=== PATIENT | female | born 1995 | race African-American/Black ===

== ENCOUNTER 2016-05-15 21:31 | Inpatient (IN) ==
--- NOTE | 2016-05-15 22:00 | ED EKG INTERP ---
EKG Interpretation - EKG Time of EKG reading by physician:: 22:00 EKG Read and Signed by:: Black Ramsay EKG Interpretation (*Must complete 3 of following elements*): Normal Rate: 114 Rhythm: Sinus tachycardia Attestation - Scribe Verification/Attestation Scribe:: Santos Bianchi Acting as Scribe for:: Black Ramsay Scribe documention review:: This chart was documented by a scribe and accurately reflects the service the provider performed and the decisions made by the provider.
--- NOTE | 2016-05-15 22:06 | PROVIDER DOCUMENTATION ---
HPI-General Adult - General Stated Complaint: overdose Time Seen by Provider: 05/15/16 21:52 Source: EMS Allergies/Adverse Reactions: Patient Allergies Allergy/AdvReac Type Severity Reaction Status Date / Time Unable to Assess Allergy Verified 05/15/16 22:46 Home Medications: Home Medication List Medication Instructions Recorded Confirmed Last Taken Type Home Meds Unobtainable 05/15/16 05/15/16 Unknown History - History of Present Illness -Gen Adult Nature of Presenting Problems: This pt presents to ED with possible overdose. EMS reports that the pt was at a [employer] when she admitted to smoking a blunt. Upon arrival to the scene patient was passed out and when she woke up she was combative. She was placed in four point soft restraints in which she broke through and she was then medicated with Haldol and Benadryl. Pt is currently arousable to sternal rub and she is alert to person and place. Location of Pain/Injury: reports: none. denies: head, face, mouth, neck, chest , upper extremity, hand(s), abdomen, back, pelvis, genitalia, lower extremity, feet, upper body, lower body, generalized, other Pain Radiation: reports: no radiation. denies: arm(s), back, buttocks, chest, epigastric, feet, groin, jaw, flank (L), legs (lower), LLQ, LUQ, neck, periumbilical, flank (R), RLQ, RUQ, shoulder(s), scapula, scrotal, sternal notch , suprapubic, legs (upper), urethral, vaginal, other Quality of Pain: reports: none. denies: aching, burning, cramping, dull, fullness, sharp, stabbing Timing: reports: other (no pain noted) Context/Activities at Onset: reports: none Modifying Factors: improves with: nothing. worse with: analgesics, antacids, breathing, cold/heat therapy, coughing, defecating, eating, exercise, immobilization, lying down, massage, movement, other medication, palpation, rest , urinating, vomiting, other Associated Symptoms: reports: denies symptoms. denies: anxiety, arm pain, back/ neck pain, chest pain, constipation, cough, diaphoresis, diarrhea, dizziness, EENT symptoms, fatigue, fever/chills, genitourinary problems, headaches, heartburn, joint pain, loss of appetite, malaise, muscle aches, sinus congestion /drainage, nausea, rash, seizure, shortness of breath, sensory/motor loss, pain with inspiration, swelling/mass in abdomen, syncope, vomiting, weakness, trouble walking, other - Diabetes Related Context Context: denies: low blood sugar, high blood sugar, change in mental status, unresponsive, prior DKA hospitalization - Sickle Cell Pain Related Context Sickle Cell Pain Location: reports: none. denies: head, face, mouth, neck, chest, upper extremity, hand(s), abdomen, back, pelvis, genitalia, lower extremity, feet, upper body, lower body, generalized, other Review of Systems - Adult - REVIEW OF SYSTEMS - ADULT Constitutional: reports: see HPI. denies: night sweats, weight gain, weight loss Eyes: reports: see HPI. denies: discharge, dry eyes, eye pain Ears, Nose, Mouth & Throat: reports: see HPI. denies: ear discharge, ear pain, hearing loss, nose pain, loose teeth, mouth/dental pain, mouth swelling Cardiovascular: reports: see HPI. denies: chest pain, heart murmur, irregular heart rate, orthopnea Respiratory: reports: see HPI. denies: chronic cough, cough, dyspnea on exertion, excessive sputum production, shortness of breath Gastrointestinal: reports: see HPI. denies: abdominal pain, hematemesis, constipation, difficulty swallowing Genitourinary: reports: see HPI Musculoskeletal: reports: see HPI. denies: bone pain, back pain, joint pain, joint swelling, muscle aches, muscle weakness Integumentary: reports: see HPI. denies: mole changes, nail changes, rash, skin sores/ulcer, skin thickening Neurological: reports: see HPI. denies: ataxia, dizziness/vertigo, headache/ migraines, loss of balance, numbness, paresthesia, seizure, slurred speech, syncope, tremors Psychiatric: reports: see HPI Endocrine: reports: see HPI. denies: change in skin pigment, excessive sweating , cold intolerance, heat intolerance Hematologic/Lymphatic: reports: see HPI. denies: low blood count, lymphedema, prolonged bleeding Past History - Adult - PAST MEDICAL HISTORY-ADULT Review of Records: reports: Old Records Reviewed, Nursing Assessment Review, Medications Reviewed, Social history reviewed & non-contributory. Physical Exam-General - PHYSICAL EXAM-ADULT Initial Vital Signs Reviewed: Yes - CONSTITUTIONAL General Appearance: no apparent distress, lethargic. negative: obese, thin, anxious - EYES Eyes: PERRL/EOMI. negative: EOM palsy, meningismus, photophobia, sclera injected - HEAD, EARS, NOSE, MOUTH & THROAT HENMT: normocephalic/atraumatic, moist mucous membranes. negative: pharynx normal, angioedema, dental decay, hearing deficit - NECK Neck: non-tender, full range of motion, supple. negative: carotid bruit, C- spine tenderness, limited range of motion - RESPIRATORY Respiratory: no pleuratic chest pain, no accessory muscle use, crackles, wheezing. negative: pain on inspiration, plerual rub, retractions - CARDIOVASCULAR Cardiovascular: normal peripheral pulses, regular rate, rhythm, no edema, no gallop, no JVD, no murmur. negative: diastolic murmur, systolic murmur, gallop/ S4, extra beats, friction rub - CHEST (BREASTS) Chest/Breast: deferred - GASTROINTESTINAL (ABDOMEN) Abdominal Exam: normal bowel sounds, non tender, no organomegaly, no pulsatile mass. negative: hepatomegaly, spleenomegaly, McBurney's point tenderness - GENITOURINARY Female Genitalia/Pelvic Exam: deferred Rectal Exam: deferred - LYMPHATIC Lymphatic: no adenopathy. negative: axilla node tender, cervical node tenderness, inguinal node tender, enlargement - MUSCULOSKELETAL Back Exam: normal inspection, no CVA tenderness, no vertebral tenderness. negative: muscle spasm, scoliosis, swelling Extremity: normal range of motion, non-tender, no pedal edema, no calf tenderness, normal capillary refill. negative: calf tenderness, deformity, erythema, pedal edema, slow capillary refill Peripheral Pulses: radial (R): 2+, radial (L): 2+, dorsalis-pedis (R): 2+, dorsalis-pedis (L): 2+ - SKIN Integumentary: normal color, warm/dry. negative: blanching, cyanosis, diaphoresis, signs of IVDA, jaundice, swelling, tenderness - NEUROLOGIC Neurologic: negative: facial droop, focal weakness, motor weakness, sensory deficit - PSYCHIATRIC Psych/Mental Status: other (sedated at this time; arousable to sternal rub; alert to place and person) Progress - PLAN OF CARE/RESULTS Progress/Plan/Lab Results: Dr. Ramsay at bedside for evaluation. Discussed results and plan of care with patient. patient agrees with plan and verbalizes understanding. Vital Signs Temp Pulse Resp BP Pulse Ox 05/15/16 22:13 98.7 F 117 H 22 93/50 97 Unable to Assess Allergy (Verified 05/15/16 22:46) patient is unresponsive Home Meds Unobtainable 05/15/16 Laboratory 05/16/16 05/15/16 05/15/16 00:15 22:40 22:30 WBC RBC Hgb Hct MCV MCH MCHC RDW Std Deviation Plt Count MPV Immature Gran % (Auto) Neut % (Auto) Lymph % (Auto) Stanton % (Auto) Eos % (Auto) Baso % (Auto) Immature Gran # (Auto) Neut # (Auto) Lymph # (Auto) Stanton # (Auto) Eos # (Auto) Baso # (Auto) Specimen Type ARTERIAL Sample Site L RADIAL pH 7.28 L pCO2 51 H* pO2 99 HCO3 23.8 Base Excess -3.0 ABG O2 Saturation 97.0 Alexei Test YES Blood Gas Modality CANNULA FiO2 % 28.0 Sodium Potassium Chloride Carbon Dioxide Anion Gap BUN Creatinine Estimated GFR/1.73 m2 BUN/Creatinine Ratio Glucose POC Glucose 96 Calculated Osmolality Calcium Total Bilirubin AST ALT Alkaline Phosphatase Creatine Kinase Troponin T Total Protein Albumin Globulin Albumin/Globulin Ratio Urine Source Urine Color Urine Turbidity Urine pH Ur Specific Jelm Urine Protein Ur Glucose (Stick) Ur Ketones (Stick) Urine Blood Urine Nitrite Urine Bilirubin Urobilinogen Dipstick Urine Leukocytes Urine WBC (Auto) Urine RBC (Auto) U Epithel Cells (Auto) Urine Bacteria (Auto) Urine Crystals Small Round Cells Urine Casts Urine Yeast-like Cells Urine Opiates Screen NONE DETECTED Ur Oxycodone Screen NONE DETECTED Ur Methadone, Qual NONE DETECTED Ur Barbiturates Screen NONE DETECTED Ur Phencyclidine Scrn NONE DETECTED Ur Amphetamines Screen NONE DETECTED U Benzodiazepines Scrn NONE DETECTED Urine Cocaine Screen NONE DETECTED U Cannabinoids Screen PRESUMPTIVE POSITIVE A Plasma/Serum Ethyl Alc 05/15/16 05/15/16 05/15/16 22:30 21:50 21:50 WBC RBC Hgb Hct MCV MCH MCHC RDW Std Deviation Plt Count MPV Immature Gran % (Auto) Neut % (Auto) Lymph % (Auto) Stanton % (Auto) Eos % (Auto) Baso % (Auto) Immature Gran # (Auto) Neut # (Auto) Lymph # (Auto) Stanton # (Auto) Eos # (Auto) Baso # (Auto) Specimen Type Sample Site pH pCO2 pO2 HCO3 Base Excess ABG O2 Saturation Alexei Test Blood Gas Modality FiO2 % Sodium Potassium Chloride Carbon Dioxide Anion Gap BUN Creatinine Estimated GFR/1.73 m2 BUN/Creatinine Ratio Glucose POC Glucose Calculated Osmolality Calcium Total Bilirubin AST ALT Alkaline Phosphatase Creatine Kinase Troponin T < 0.010 Total Protein Albumin Globulin Albumin/Globulin Ratio Urine Source CATH Urine Color YELLOW Urine Turbidity HAZY Urine pH 5.5 Ur Specific Jelm 1.027 Urine Protein 200 A Ur Glucose (Stick) NEGATIVE Ur Ketones (Stick) TRACE A Urine Blood NEGATIVE Urine Nitrite NEGATIVE Urine Bilirubin NEGATIVE Urobilinogen Dipstick NORMAL Urine Leukocytes NEGATIVE Urine WBC (Auto) 10-20 A Urine RBC (Auto) <10 U Epithel Cells (Auto) >10 A Urine Bacteria (Auto) NEGATIVE Urine Crystals NONE SEEN Small Round Cells NONE SEEN Urine Casts GRANULAR PRESENT Urine Yeast-like Cells NONE SEEN Urine Opiates Screen Ur Oxycodone Screen Ur Methadone, Qual Ur Barbiturates Screen Ur Phencyclidine Scrn Ur Amphetamines Screen U Benzodiazepines Scrn Urine Cocaine Screen U Cannabinoids Screen Plasma/Serum Ethyl Alc 05/15/16 05/15/16 21:50 21:50 WBC 9.68 RBC 4.30 Hgb 11.0 L Hct 32.8 L MCV 76.3 L MCH 25.6 L MCHC 33.5 RDW Std Deviation 15.2 H Plt Count 389 MPV 8.8 Immature Gran % (Auto) 1.9 H Neut % (Auto) 72.5 Lymph % (Auto) 11.6 L Stanton % (Auto) 11.9 H Eos % (Auto) 1.5 Baso % (Auto) 0.6 Immature Gran # (Auto) 0.18 H Neut # (Auto) 7.02 H Lymph # (Auto) 1.12 L Stanton # (Auto) 1.15 H Eos # (Auto) 0.15 Baso # (Auto) 0.06 Specimen Type Sample Site pH pCO2 pO2 HCO3 Base Excess ABG O2 Saturation Alexei Test Blood Gas Modality FiO2 % Sodium 137 Potassium 4.1 Chloride 103 Carbon Dioxide 21 L Anion Gap 13 BUN 12 Creatinine 1.1 H Estimated GFR/1.73 m2 > 60 BUN/Creatinine Ratio 11 Glucose 100 POC Glucose Calculated Osmolality 274 Calcium 9.3 Total Bilirubin < 0.10 L AST 23 ALT 34 Alkaline Phosphatase 82 Creatine Kinase 100 Troponin T Total Protein 7.4 Albumin 3.4 L Globulin 4.0 Albumin/Globulin Ratio 0.9 Urine Source Urine Color Urine Turbidity Urine pH Ur Specific Jelm Urine Protein Ur Glucose (Stick) Ur Ketones (Stick) Urine Blood Urine Nitrite Urine Bilirubin Urobilinogen Dipstick Urine Leukocytes Urine WBC (Auto) Urine RBC (Auto) U Epithel Cells (Auto) Urine Bacteria (Auto) Urine Crystals Small Round Cells Urine Casts Urine Yeast-like Cells Urine Opiates Screen Ur Oxycodone Screen Ur Methadone, Qual Ur Barbiturates Screen Ur Phencyclidine Scrn Ur Amphetamines Screen U Benzodiazepines Scrn Urine Cocaine Screen U Cannabinoids Screen Plasma/Serum Ethyl Alc Orders Category Date Time Status ED: Urine Bedside ORDERED Care 05/15/16 22:01 Active FSBS [Finger Stick Blood Sugar (ED)] DIRECTED Care 05/15/16 22:09 Active Restraint/Seclude Init/Renew V NOW Care 05/15/16 22:35 Active Saline Loc NOW Care 05/15/16 22:00 Active CHEST-PORTABLE [RAD] Stat Exams 05/15/16 22:59 Taken ABG [RESP] Routine Lab 05/15/16 23:41 Completed ABG [RESP] Routine Lab 05/16/16 01:30 Ordered ALCOHOL BLOOD Stat Lab 05/15/16 21:50 Completed CBC WITH ELECTRONIC DIFF [HEME] Stat Lab 05/15/16 21:50 Completed CK PROFILE [SP CHEM] Stat Lab 05/15/16 21:50 Completed COMPREHENSIVE METABOLIC PANEL [CHEM] Stat Lab 05/15/16 21:50 Completed TROPONIN T Stat Lab 05/15/16 21:50 Completed URINALYSIS W/POSS RFLX CULT [URINALYSIS] Stat Lab 05/15/16 22:30 Completed URINE CULTURE [RM] Routine Lab 05/15/16 23:46 Received URINE DRUG SCREEN Stat Lab 05/15/16 22:30 Completed URINE MANUAL MICROSCOPIC [URINALYSIS] Stat Lab 05/15/16 22:30 Completed 0.9% Sodium Chloride Inj [Ns] 1,000 ml Med 05/15/16 23:11 Discontinued .ROUTE As Directed 0.9% Sodium Chloride Inj [Ns] 1,000 ml Med 05/15/16 22:08 Discontinued IV 999 mls/hr Diphenhydramine [Benadryl] Med 05/15/16 22:34 Discontinued 25 mg IV NOW ONE Diphenhydramine [Benadryl] Med 05/15/16 22:31 Discontinued 50 mg .ROUTE .STK-MED ONE Dopamine 400 mg/D5w 500 ml Med 05/15/16 23:30 Discontinued .ROUTE As Directed Dopamine 400 mg/D5w 500 ml Med 05/15/16 23:30 Active IV As Directed Sodium Bicarbonate 8.4% Med 05/16/16 00:30 Discontinued 50 meq IV PUSH NOW ONE Water, Sterile Inj [Sterile Water Inj] Med 05/15/16 22:33 Discontinued 1.2 ml INJ NOW ONE Water, Sterile Inj [Sterile Water Inj] Med 05/15/16 22:31 Discontinued 10 ml .ROUTE .STK-MED ONE Ziprasidone [Geodon] Med 05/15/16 22:30 Discontinued 20 mg .ROUTE .STK-MED ONE Ziprasidone [Geodon] Med 05/15/16 22:33 Discontinued 20 mg IM NOW ONE EKG [EKG] Stat Ther 05/15/16 21:53 Ordered Laboratory Tests 05/15/16 05/15/16 05/15/16 21:50 21:50 21:50 WBC 9.68 RBC 4.30 Hgb 11.0 L Hct 32.8 L MCV 76.3 L MCH 25.6 L MCHC 33.5 RDW Std Deviation 15.2 H Plt Count 389 MPV 8.8 Immature Gran % (Auto) 1.9 H Neut % (Auto) 72.5 Lymph % (Auto) 11.6 L Stanton % (Auto) 11.9 H Eos % (Auto) 1.5 Baso % (Auto) 0.6 Immature Gran # (Auto) 0.18 H Neut # (Auto) 7.02 H Lymph # (Auto) 1.12 L Stanton # (Auto) 1.15 H Eos # (Auto) 0.15 Baso # (Auto) 0.06 Specimen Type Sample Site pH pCO2 pO2 HCO3 Base Excess ABG O2 Saturation Alexei Test Blood Gas Modality FiO2 % Sodium 137 Potassium 4.1 Chloride 103 Carbon Dioxide 21 L Anion Gap 13 BUN 12 Creatinine 1.1 H Estimated GFR/1.73 m2 > 60 BUN/Creatinine Ratio 11 Glucose 100 POC Glucose Calculated Osmolality 274 Calcium 9.3 Total Bilirubin < 0.10 L AST 23 ALT 34 Alkaline Phosphatase 82 Creatine Kinase 100 Troponin T < 0.010 Total Protein 7.4 Albumin 3.4 L Globulin 4.0 Albumin/Globulin Ratio 0.9 Urine Source Urine Color Urine Turbidity Urine pH Ur Specific Jelm Urine Protein Ur Glucose (Stick) Ur Ketones (Stick) Urine Blood Urine Nitrite Urine Bilirubin Urobilinogen Dipstick Urine Leukocytes Urine WBC (Auto) Urine RBC (Auto) U Epithel Cells (Auto) Urine Bacteria (Auto) Urine Crystals Small Round Cells Urine Casts Urine Yeast-like Cells Urine Opiates Screen Ur Oxycodone Screen Ur Methadone, Qual Ur Barbiturates Screen Ur Phencyclidine Scrn Ur Amphetamines Screen U Benzodiazepines Scrn Urine Cocaine Screen U Cannabinoids Screen Plasma/Serum Ethyl Alc 05/15/16 05/15/16 05/15/16 21:50 22:30 22:30 WBC RBC Hgb Hct MCV MCH MCHC RDW Std Deviation Plt Count MPV Immature Gran % (Auto) Neut % (Auto) Lymph % (Auto) Stanton % (Auto) Eos % (Auto) Baso % (Auto) Immature Gran # (Auto) Neut # (Auto) Lymph # (Auto) Stanton # (Auto) Eos # (Auto) Baso # (Auto) Specimen Type Sample Site pH pCO2 pO2 HCO3 Base Excess ABG O2 Saturation Alexei Test Blood Gas Modality FiO2 % Sodium Potassium Chloride Carbon Dioxide Anion Gap BUN Creatinine Estimated GFR/1.73 m2 BUN/Creatinine Ratio Glucose POC Glucose Calculated Osmolality Calcium Total Bilirubin AST ALT Alkaline Phosphatase Creatine Kinase Troponin T Total Protein Albumin Globulin Albumin/Globulin Ratio Urine Source CATH Urine Color YELLOW Urine Turbidity HAZY Urine pH 5.5 Ur Specific Jelm 1.027 Urine Protein 200 A Ur Glucose (Stick) NEGATIVE Ur Ketones (Stick) TRACE A Urine Blood NEGATIVE Urine Nitrite NEGATIVE Urine Bilirubin NEGATIVE Urobilinogen Dipstick NORMAL Urine Leukocytes NEGATIVE Urine WBC (Auto) 10-20 A Urine RBC (Auto) <10 U Epithel Cells (Auto) >10 A Urine Bacteria (Auto) NEGATIVE Urine Crystals NONE SEEN Small Round Cells NONE SEEN Urine Casts GRANULAR PRESENT Urine Yeast-like Cells NONE SEEN Urine Opiates Screen NONE DETECTED Ur Oxycodone Screen NONE DETECTED Ur Methadone, Qual NONE DETECTED Ur Barbiturates Screen NONE DETECTED Ur Phencyclidine Scrn NONE DETECTED Ur Amphetamines Screen NONE DETECTED U Benzodiazepines Scrn NONE DETECTED Urine Cocaine Screen NONE DETECTED U Cannabinoids Screen PRESUMPTIVE POSITIVE A Plasma/Serum Ethyl Alc 05/15/16 05/16/16 22:40 00:15 WBC RBC Hgb Hct MCV MCH MCHC RDW Std Deviation Plt Count MPV Immature Gran % (Auto) Neut % (Auto) Lymph % (Auto) Stanton % (Auto) Eos % (Auto) Baso % (Auto) Immature Gran # (Auto) Neut # (Auto) Lymph # (Auto) Stanton # (Auto) Eos # (Auto) Baso # (Auto) Specimen Type ARTERIAL Sample Site L RADIAL pH 7.28 L pCO2 51 H* pO2 99 HCO3 23.8 Base Excess -3.0 ABG O2 Saturation 97.0 Alexei Test YES Blood Gas Modality CANNULA FiO2 % 28.0 Sodium Potassium Chloride Carbon Dioxide Anion Gap BUN Creatinine Estimated GFR/1.73 m2 BUN/Creatinine Ratio Glucose POC Glucose 96 Calculated Osmolality Calcium Total Bilirubin AST ALT Alkaline Phosphatase Creatine Kinase Troponin T Total Protein Albumin Globulin Albumin/Globulin Ratio Urine Source Urine Color Urine Turbidity Urine pH Ur Specific Jelm Urine Protein Ur Glucose (Stick) Ur Ketones (Stick) Urine Blood Urine Nitrite Urine Bilirubin Urobilinogen Dipstick Urine Leukocytes Urine WBC (Auto) Urine RBC (Auto) U Epithel Cells (Auto) Urine Bacteria (Auto) Urine Crystals Small Round Cells Urine Casts Urine Yeast-like Cells Urine Opiates Screen Ur Oxycodone Screen Ur Methadone, Qual Ur Barbiturates Screen Ur Phencyclidine Scrn Ur Amphetamines Screen U Benzodiazepines Scrn Urine Cocaine Screen U Cannabinoids Screen Plasma/Serum Ethyl Alc - REASSESSMENT Reassessment #1 Time Reassessed: 01:10 (Evaluation by Dr. Ramsay) Status: unchanged Reassessment Comment: Pt. vitals remain stable and pt. arousable. - XRAY 1 XRAY Study: Chest XRAY Interpretation: Mild cardiomegally, Possible aspiration pneumonia LLJoce Ramsay) - CONSULTS/PCP/HOSPITALIST Notification #1 *Consult/PCP/Hospitalist*: Dr. Child Time Discussed: 01:21 Reason/Comments: Admit Consult Disposition: Will see in ED, Admit Departure - Departure Time of Disposition Order: 01:12 DIAGNOSIS: Metabolic acidosis Disposition: ADMITTED INPATIENT 09 Certified Medical Emergency: Emergent Condition: Stable Attestation - Physician/ JANA Attestation Patient care was provided by Advanced Practice Provider:: Yes Advanced Practice Provider:: Shine Linda Advanced Practice Provider documentation review:: The Mid-level provider documentation, treatment plan and medical decision making was reviewed by the physician who agrees with all treatment and medical decision making by the MLP. The physician spent face to face time with patient:: Yes Advanced Practice Provider documentation review:: The physician spent face to face time with this patient and agrees with all MLP documentation, treatment, and medical decision making by the MLP. See provider notes for further information.
[2016-05-15] MEDS ORDERED: NS 1,000 ML IV ONE (22:08)
[2016-05-15 22:27] LABS: BASO% 0.6 % (0.0-0.8); EOS# 0.15 X1000 (0.0-0.7); EOS% 1.5 % (0.0-10.0); HEMATOCRIT 32.8 % (37.0-47.0); IMM GRAN# 0.18 X1000 (0.0-0.04); IMM GRAN% 1.9 % (0.0-0.5); LYMPH# 1.12 X1000 (1.2-3.4); LYMPH% 11.6 % (20.5-51.1); MANUAL DIFF NEEDED? NO; MCH 25.6 PG (27-31); MCHC 33.5 g/dL (33-37); MCV 76.3 FL (81-99); MONO# 1.15 X1000 (0.11-0.59); MONO% 11.9 % (1.7-9.3); MPV 8.8 FL (7.4-10.4); NEUT% 72.5 % (42.2-75.2); PLT 389 X1000 (130-400)
[2016-05-15] MEDS ORDERED: GEODON ONE (22:30)
[2016-05-15] MEDS ORDERED: STERILE WATER INJ. ONE (22:31)
[2016-05-15] MEDS ORDERED: BENADRYL ONE (22:31)
[2016-05-15] MEDS ORDERED: GEODON IM ONE (22:33)
[2016-05-15] MEDS ORDERED: STERILE WATER INJ. INJ ONE (22:33)
[2016-05-15] MEDS ORDERED: BENADRYL IV ONE (22:34)
[2016-05-15 22:46] LABS: AGAP 13; ALBUMIN 3.4 g/dL (3.5-5.0); ALKALINE PHOSPHATASE 82 U/L (32-104); BUN 12 mg/dL (8-22); CALCIUM 9.3 mg/dL (8.8-10.2); CHLORIDE 103 mmol/L (98-107); CK PROFILE 100 U/L (24-173); COSMO 274; GOT 23 U/L (10-30); GPT 34 U/L (10-36); POTASSIUM 4.1 mmol/L (3.5-5.1); SODIUM 137 mmol/L (136-145); TCO2 21 mmol/L (25-35); TOTAL BILIRUBIN < 0.10 mg/dL (0.20-1.00); TOTAL PROTEIN 7.4 g/dL (6.3-8.3)
[2016-05-15 22:49] LABS: URINE SOURCE CATH
[2016-05-15 22:53] LABS: BILIRUBIN URINE NEGATIVE (NEGATIVE); BLOOD URINE NEGATIVE (NEGATIVE); COLOR YELLOW; GLUCOSE URINE NEGATIVE (NEGATIVE); LEUKOCYTES URINE NEGATIVE (NEGATIVE); NITRITE URINE NEGATIVE (NEGATIVE); PH URINE 5.5; PROTEIN URINE 200 mg/dL (NEGATIVE); SP GRAVITY URINE 1.027; TURBIDITY URINE HAZY (CLEAR); UROBILINOGEN URINE NORMAL (NORMAL)
[2016-05-15 22:54] LABS: URINE MICRO REVIEW NEEDED? YES
[2016-05-15 22:58] LABS: UR EPITHELIAL CELLS >10 /HPF (<10); URINE BACTERIA NEGATIVE /HPF; URINE CULTURE NEEDED? YES; URINE RBC <10 /HPF (<10)
[2016-05-15] MEDS ORDERED: NS 1,000 ML ONE (23:11)
[2016-05-15] MEDS ORDERED: DOPAMINE 400 MG/D5W 500 ML IV SCH (23:30)
[2016-05-15] MEDS ORDERED: DOPAMINE 400 MG/D5W 500 ML ONE (23:30)
[2016-05-15 23:39] LABS: UR AMPHETAMINES QUAL NONE DETECTED (NONE DETECT); UR BARBITUATES QUAL NONE DETECTED (NONE DETECT); UR BENZODIAZEPIN QUAL NONE DETECTED (NONE DETECT); UR CANNABINOIDS QUAL PRESUMPTIVE POSITIVE (NONE DETECT); UR COCAINE QUAL NONE DETECTED (NONE DETECT); UR METHADONE QUAL NONE DETECTED (NONE DETECT); UR OPIATES QUAL NONE DETECTED (NONE DETECT); UR OXYCODONE QUAL NONE DETECTED (NONE DETECT); UR PCP QUAL NONE DETECTED (NONE DETECT)
[2016-05-15 23:45] LABS: URINE CASTS GRANULAR PRESENT; URINE CRYSTALS NONE SEEN; URINE SMALL ROUND CELLS NONE SEEN
[2016-05-16 00:23] LABS: BLOOD TYPE ARTERIAL; SAMPLE BLOOD
[2016-05-16 00:24] LABS: pH(98.6) 7.28 (7.35-7.45)
[2016-05-16 00:25] LABS: ALLEN TEST YES; DRAW SITE L RADIAL; MODALITY CANNULA; PO2(98.6) 99 mmHg (60-100)
[2016-05-16 00:27] LABS: PCO2(98.6) 51 mmHg (35-45)
[2016-05-16] MEDS ORDERED: SODIUM BICARBONATE 8.4% IV PUSH ONE (00:30)
[2016-05-16] MEDS ORDERED: ROCEPHIN 1 GM/NS 50 ML IV ONE (01:19)
[2016-05-16] MEDS ORDERED: LEVAQUIN 750 MG/D5W 150 ML IV ONE (01:19)
[2016-05-16] MEDS ORDERED: NS 1,000 ML IV ONE (01:22)
[2016-05-16 02:09] LABS: ALLEN TEST YES; BE -0.5 mmoll (-3.0-3.0); BLOOD TYPE ARTERIAL; DRAW SITE L RADIAL; METHB 1.7 % (0.0-1.5); O2(CT) 14.4 mL/dL (15.0-23.0); PCO2(98.6) 49 mmHg (35-45); PO2(98.6) 247 mmHg (60-100); SAMPLE BLOOD; THB 10.1 g/dL (11.5-17.4); pH(98.6) 7.33 (7.35-7.45)
[2016-05-16 02:10] LABS: MODALITY NRB
[2016-05-16] MEDS ORDERED: HEPARIN ONE (03:05)
[2016-05-16] MEDS ORDERED: ZOFRAN IV PRN (06:18)
[2016-05-16] MEDS ORDERED: NS 1,000 ML IV SCH (06:18)
[2016-05-16] MEDS ORDERED: TYLENOL PO PRN (06:18)
[2016-05-16] MEDS: DUONEB (A & A) INH SCH ×2 (07:30→11:11)
--- NOTE | 2016-05-16 09:19 | HISTORY AND PHYSICAL ---
CHIEF COMPLAINT: Suspected overdose. HISTORY OF PRESENTING ILLNESS: A 21-year-old female who apparently was brought to the emergency department on suspicion of overdose. As she arrived in the emergency department, she was very agitated at times. She was given some sedation, and upon further questioning, it seems that she may have smoked a marijuana blunt or so. It was suspected that it was possibly maybe Spice, a synthetic version of marijuana. She was somewhat altered and was not adequately responsive, and due to presenting symptoms, it was thought that she would need hospitalization for further management. At the time of my examination, she was a little bit more aroused. She had denied any headache, fever, chills, chest pain, shortness of breath, or any weight changes, but still was somewhat agitated. PAST MEDICAL HISTORY: Asthma. PAST SURGICAL HISTORY: None. ALLERGIES: No known drug allergies. CURRENT MEDICATIONS: None. SOCIAL HISTORY: About 8 years of a history of smoking. Admits to social alcohol use. History of marijuana use. FAMILY HISTORY: No history of coronary artery disease. REVIEW OF SYSTEMS: A 12-point systems is as in the HPI. Other systems are negative. PHYSICAL EXAMINATION: GENERAL: A cooperative female. She is more alert now. VITAL SIGNS: Temperature 98.7 degrees, pulse 117, respirations 22, blood pressure 93/50. She is saturating 97%. HEENT: Atraumatic, normocephalic. Extraocular movements intact. PERRLA. NECK: No masses. CHEST: Clear to auscultation. CARDIOVASCULAR: Regular rate and rhythm. ABDOMEN: Soft, obese, positive bowel sounds. EXTREMITIES: No edema. NEUROLOGIC: She is awake, alert, oriented x2. GENITOURINARY: No bladder distention. SKIN: Warm. LABORATORIES AND STUDIES: WBC 9.68, hemoglobin 11.1, hematocrit 32.8, platelets 389,000. Sodium 137, potassium 4.1, chloride 103, CO2 of 21, BUN is 12, creatinine 1.1, glucose is 100. Toxicology shows cannabinoids. ASSESSMENT: A 21-year-old female who was brought into the hospital for suspected overdose. She had apparently been agitated, and it was noted that she smoked a blunt of marijuana prior to these symptoms happening. She became less agitated throughout her course in the emergency room; however, she will need hospitalization for further management. 1. Suspected overdose. 2. Altered mental status. 3. Drug abuse with possibly Spice. 4. Asthma. PLAN: 1. We will admit the patient to the medical floor with telemetry. 2. We will continue with neurological checks. 3. Continue with supportive treatment with IV fluids and antiemetics. 4. We will use DuoNeb p.r.n. 5. We will continue to follow and reassess.
[2016-05-16 10:19] LABS: ALLEN TEST NO; BE -0.4 mmoll (-3.0-3.0); BLOOD TYPE ARTERIAL; DRAW SITE R BRACHIAL; O2(CT) 14.5 mL/dL (15.0-23.0); PCO2(98.6) 38 mmHg (35-45); PO2(98.6) 99 mmHg (60-100); SAMPLE BLOOD; SAO2 99.7 % (95.0-100.0); THB 10.6 g/dL (11.5-17.4); pH(98.6) 7.41 (7.35-7.45)
[2016-05-16 10:20] LABS: MODALITY ROOM AIR
[2016-05-16 11:26] VITALS: BP 108/63
[2016-05-16 11:26] LABS: BASO% 0.6 % (0.0-0.8); EOS# 0.09 X1000 (0.0-0.7); EOS% 1.4 % (0.0-10.0); HEMATOCRIT 31.5 % (37.0-47.0); HEMOGLOBIN 10.3 g/dL (12.0-16.0); IMM GRAN# 0.04 X1000 (0.0-0.04); IMM GRAN% 0.6 % (0.0-0.5); LYMPH# 1.71 X1000 (1.2-3.4); LYMPH% 27.5 % (20.5-51.1); MANUAL DIFF NEEDED? YES; MCH 25.3 PG (27-31); MCHC 32.7 g/dL (33-37); MCV 77.4 FL (81-99); MONO# 0.95 X1000 (0.11-0.59); MONO% 15.3 % (1.7-9.3); MPV 8.3 FL (7.4-10.4); NEUT% 54.6 % (42.2-75.2); PLT 329 X1000 (130-400); RBC 4.07 XMIL (4.2-5.4)
[2016-05-16 11:30] LABS: AGAP 11; BUN 7 mg/dL (8-22); CALCIUM 8.4 mg/dL (8.8-10.2); CHLORIDE 105 mmol/L (98-107); COSMO 276; POTASSIUM 3.5 mmol/L (3.5-5.1); SODIUM 139 mmol/L (136-145); TCO2 23 mmol/L (25-35)
--- NOTE | 2016-05-16 11:35 | Diag Imaging Result Document ---
PROCEDURE NAME: CHEST-PORTABLE - 05/15/2016 SINGLE FRONTAL RADIOGRAPH OF THE CHEST: COMPARISON: None available. FINDINGS: The lungs are grossly clear. There is no discrete pleural fluid collection or evidence of pneumothorax. The cardiomediastinal silhouette and upper airway are grossly unremarkable. IMPRESSION: No evidence of acute chest pathology.
[2016-05-16 11:58] LABS: BANDS 10 % (0-1); EOS 2 % (1-10); LYMPHS 26 % (21-51); MONO 8 % (1-9)
[2016-05-16 11:59] LABS: HYPOCHROM 1+
--- NOTE | 2016-05-16 17:01 | DISCHARGE SUMMARY ---
ADMISSION DATE: 05/16/2016 DISCHARGE DATE: 05/16/2016 DISCHARGE DIAGNOSES: 1. Drug overdose. 2. Altered mental status, resolved. 3. "Spice" abuse. 4. Bronchial asthma. PROCEDURES: None. CONSULTATIONS: None. HOSPITAL COURSE: A 21-year-old, female who was brought to the emergency department apparently because of a suspicion for drug overdose. When she arrived to the emergency department. She was very agitated at times. She was given some sedation and apparently upon further questioning, it was reported that she was using marijuana. They were not sure and also they think that it was "Spice" she was using. In any case, she was agitated and altered, so she was admitted to the hospital for further management. The patient was kept in the Intensive Care Unit overnight and she was doing fine. Upon my examination today, she was alert and oriented x3. Able to eat. Patient is going to be discharged in a stable condition. She was strongly recommended to stop using drugs. DISCHARGE PHYSICAL EXAMINATION: Vitals: Temperature 97.9 degrees, heart rate 86, respiratory rate 12, blood pressure 108/80, O2 saturation 100% on room air. General examination: This is a 21-year-old, female lying in bed. Psych: In no acute distress. HEENT: Head is normocephalic, atraumatic. Anicteric sclerae and pale conjunctivae. Mucous membranes moist. Neck: Supple. No JVD noted. No carotid bruits. No lymphadenopathy. No thyromegaly. Cardiovascular: S1, S2 heard. No murmurs, gallops, or rubs. Regular rate and rhythm. Respiratory: Clear bilaterally to auscultation. No work of breathing or using accessory muscles. Abdomen: Soft, nontender to palpation. Bowel sounds present. No organomegaly. Extremities: No clubbing, cyanosis, or edema. Peripheral pulses present in both legs. Neurological examination: Patient alert oriented x3. Able to move 4 extremities. Cranial nerves 2-12 grossly normal. DISCHARGE DISPOSITION: To home to self-care. LIST OF MEDICATIONS: None.
--- NOTE | 2016-05-17 06:37 | EKG Report ---
Test Performed on : 05/15/2016 9:54:42 PM Test Reason : LETHARGIC Blood Pressure : / mmHG Vent. Rate : 114 BPM Atrial Rate : 114 BPM P-R Int : 170 ms QRS Dur : 082 ms QT Int : 320 ms P-R-T Axes : 054 010 021 degrees QTc Int : 441 ms Sinus tachycardia. Otherwise normal ECG No previous ECGs available Unconfirmed Result
== END 2016-05-16 13:57 | disposition home or self-care (01) | DRG 918 ==
LOC: EDUNIT# → EDBD → ED 21:31 → ICU 05-16 05:31
PROVIDERS: ATTEND Internal Medicine
DX: T40.991A Poisoning by other psychodysleptics [hallucinogens], accidental (unintentional), initial encounter (principal); J45.909 Unspecified asthma, uncomplicated; Z87.891 Personal history of nicotine dependence
CPT/HCPCS: 71010; 80048; 80053; 81001; 82550; 82805; 82948; 84484; 85025; 87088; 93005; 94640; G0480; J0696; J1200; J1265; J3486; J7030; 80320; 80324; 80345; 80346; 80349; 80353; 80358; 80361; 80365; 83992